=== PATIENT | female | born 1985 | race Hispanic/Latino ===

== ENCOUNTER 2017-06-14 20:10 | Emergency (ER) | payer MEDICAID ==
[2017-06-14] MEDS ORDERED: ACETAMINOPHEN EXTRA STRENGTH 500 MG TABLET ONE (20:47)
[2017-06-14 21:20] LABS: RAPID GROUP A STREP NEGATIVE (NEGATIVE)
== END 2017-06-14 21:30 | disposition home or self-care (01) ==
LOC: EDH 20:10
DX: J09.X2 Influenza due to identified novel influenza A virus with other respiratory manifestations (principal); R50.81 Fever presenting with conditions classified elsewhere; J45.909 Unspecified asthma, uncomplicated; Z98.51 Tubal ligation status; Z98.890 Other specified postprocedural states
CPT/HCPCS: 87804; 87880

== ENCOUNTER 2022-01-13 14:21 | Emergency (ER) | payer MEDICAID ==
[~2022-01-13] VITALS: Ht 170.2 cm; Wt 124.7 kg
[2022-01-13] MEDS ORDERED: ACETAMINOPHEN 500 MG TABLET PO STA (16:25)
[2022-01-13] MEDS ORDERED: ACET-66 PO (16:30)
[2022-01-13 17:00] VITALS: BP 122/84
== END 2022-01-13 17:04 | disposition home or self-care (01) ==
LOC: EDH 14:21
DX: U07.1 COVID-19 (principal); Z90.49 Acquired absence of other specified parts of digestive tract
CPT/HCPCS: 99283; 87880; 87635; 87804 ×2; C9803

== ENCOUNTER 2022-05-06 17:08 | Emergency (ER) | payer MEDICAID ==
[~2022-05-06] VITALS: Ht 170.2 cm; Wt 122.5 kg
[~2022-05-06 17:08] MED LIST: ACET-66 PO
[2022-05-06 17:23] VITALS: BP 136/71
[2022-05-06] MEDS ORDERED: NAPR-1196 PO (18:26)
== END 2022-05-06 18:42 | disposition home or self-care (01) ==
LOC: EDH 17:08
DX: S93.401A Sprain of unspecified ligament of right ankle, initial encounter (principal); X50.1XXA Overexertion from prolonged static or awkward postures, initial encounter; Y93.89 Activity, other specified; Y92.89 Other specified places as the place of occurrence of the external cause; Y99.8 Other external cause status
CPT/HCPCS: 73600

== ENCOUNTER 2022-07-01 10:37 | Emergency (ER) | payer MEDICAID ==
[~2022-07-01] VITALS: Ht 170.2 cm; Wt 121.6 kg
[~2022-07-01 10:37] MED LIST changes: +NAPR-1196 PO
[2022-07-01 10:41] VITALS: BP 147/97
[2022-07-01 11:29] LABS: BASOPHILS % (AUTO) 0.5 % (0.0-5.0); EOSINOPHILS % (AUTO) 1.1 % (0.0-8.0); HEMATOCRIT 39.4 % (36-48); LYMPHOCYTES % (AUTO) 39.9 % (21.0-51.0); MEAN CORPUSCULAR HEMOGLOBIN 27.1 pg (27.0-33.0); MEAN CORPUSCULAR HGB CONC 32.2 g/dL (32.0-36.0); NEUTROPHILS % (AUTO) 53.1 % (40.0-77.0); PLATELET COUNT (AUTO) 385 K/uL (130-400); RED BLOOD CELL COUNT(AUTO) 4.69 MIL/uL (4.00-5.50); RED CELL DISTRIBUTION WIDTH 14.5 % (11.0-15.5); WHITE BLOOD COUNT (AUTO) 7.4 K/uL (4.8-10.8)
[2022-07-01 11:31] LABS: ALBUMIN 3.2 g/dL (3.5-5.0); CREATININE 0.8 mg/dL (0.5-1.5); POTASSIUM 3.5 mmol/L (3.5-5.1); TOTAL PROTEIN, SERUM 6.9 g/dL (6.0-8.3)
[2022-07-01] MEDS ORDERED: NAPR500T6 PO (11:41)
[2022-07-01] MEDS ORDERED: KETOROLAC 15MG/ML VIAL (15MG/ML) IV ONE (12:00)
[2022-07-01] MEDS ORDERED: KETOROLAC 30MG VIAL (30MG/ML) IM ONE (12:00)
[2022-07-01 12:04] LABS: HCG,QUALITATIVE URINE NEGATIVE (NEGATIVE)
[2022-07-01 12:06] LABS: APPEARANCE,URINE CLOUDY (CLEAR); BILIRUBIN,URINE NEGATIVE (NEGATIVE); COLOR,URINE LIGHT-YELLOW (YELLOW); GLUCOSE, URINE (UA) NEGATIVE (NEGATIVE); KETONES,URINE NEGATIVE (NEGATIVE); LEUKOCYTE ESTERASE ,URINE 500 Leu/uL (NEGATIVE); NITRATE,URINE NEGATIVE (NEGATIVE); OCCULT BLOOD,URINE SMALL (NEGATIVE); PH,URINE 5.5 (5.0-8.0); PROTEIN,URINE NEGATIVE (NEGATIVE); UROBILINOGEN,URINE 0.2 mg/dL (0.2-1.0)
[2022-07-01 12:20] LABS: BACTERIA,URINE FEW /HPF (None Seen); MUCUS,URINE RARE LPF (None Seen); OTHER CASTS, URINE 5 /LPF (None Seen); SQUAMOUS EPITHELIAL CELL,UR MANY /HPF (0-2); WBC,URINE 26-50 /HPF (0-1)
[2022-07-01] MEDS ORDERED: CYCL5TAB PO (12:34)
== END 2022-07-01 12:50 | disposition home or self-care (01) ==
LOC: EDH 10:37
DX: R07.89 Other chest pain (principal); Z20.822 Contact with and (suspected) exposure to COVID-19; Z79.899 Other long term (current) drug therapy; Z98.890 Other specified postprocedural states; Z90.49 Acquired absence of other specified parts of digestive tract
CPT/HCPCS: 99285; 71045; 87635; 84484; 80053; 85025; 87088; 81001; 81025; 36415; 96372; 93005; C9803; J1885

== ENCOUNTER 2022-11-14 23:40 | Emergency (ER) | payer MEDICAID ==
[~2022-11-14] VITALS: Ht 170.2 cm; Wt 121.6 kg
[~2022-11-14 23:40] MED LIST changes: +CYCL5TAB PO; +NAPR500T6 PO
[2022-11-15 01:31] VITALS: BP 132/60
== END 2022-11-15 02:06 | disposition left against medical advice (07) ==
LOC: EDH 23:40
DX: M79.669 Pain in unspecified lower leg (principal); Z53.21 Procedure and treatment not carried out due to patient leaving prior to being seen by health care provider
CPT/HCPCS: 99281